=== PATIENT | female | born 1955 | race Caucasian/White ===

== ENCOUNTER 2016-12-07 12:27 | Emergency (ER) | payer OTHER ==
[~2016-12-07] VITALS: Ht 167.6 cm; Wt 86.6 kg
[2016-12-07 14:26] LABS: HEMATOCRIT 40.6 % (34.6-47.8); HEMOGLOBIN 13.3 g/dL (11.7-16.4)
[2016-12-07 14:35] LABS: PATH.CAST-FLAG NOT PRESENT; SPERM-FLAG NOT PRESENT; SRC-FLAG NOT PRESENT; XTAL-FLAG NOT PRESENT; YLC-FLAG NOT PRESENT
[2016-12-07 14:39] LABS: BLOOD UREA NITROGEN 26 mg/dL (7-18)
[2016-12-07 16:16] VITALS: BP 188/94
== END 2016-12-07 16:18 | disposition home or self-care (01) ==
LOC: ED 15:24
DX: N30.01 Acute cystitis with hematuria (principal); Z87.891 Personal history of nicotine dependence
CPT/HCPCS: 36415; 76770; 80048; 81001; 82040; 85025; 87077; 87086; 87147; 87186; 93005; 99285